=== PATIENT | female | born 1935 | race Caucasian/White ===

== ENCOUNTER 2017-07-23 20:14 | Inpatient (IN) | payer MEDICARE, BC ==
[2017-07-23] MEDS ORDERED: ASPIRIN 81 MG PO STA (20:22)
[2017-07-23] MEDS ORDERED: hydrALAZINE HCL 20 MG/ML 1 ML VIAL IVP STA ×2 (20:46→22:15)
[2017-07-23 20:57] LABS: Basophils % (A) 0 %; CH 33.3; CHCM 33.3; Eosinophils # (A) 0.1 k/uL (0-0.7); Eosinophils % (A) 1 %; HDW 2.34; Luc # (Auto) 0.08; Luc % (Auto) 1; Lymphocytes % (A) 11 %; MCH 32.1 pg (25.0-35.0); MCHC 31.9 g/dL (31.0-37.0); MCV 100.5 fL (80.0-100.0); Mean Platelet Volume 9.4; Monocytes # (A) 0.4 k/uL (0-1.0); Monocytes % (A) 5 %; Neutrophils # (A) 7.5 k/uL (1.3-7.7); Neutrophils % (A) 82 %; RBC 4.38 m/uL (3.80-5.40); WBC 9.1 k/uL (3.8-10.6)
[2017-07-23 21:07] LABS: INR 1.2 (<1.2); Partial Thromboplastin Time 27.9 sec (22.0-30.0); Prothrombin Time 11.6 sec (9.0-12.0)
--- NOTE | 2017-07-23 21:07 | ED ---
General Adult HPI - General Chief complaint: Recheck/Abnormal Lab/Rx Stated complaint: Upset stomach Time Seen by Provider: 07/23/17 20:19 Source: patient, EMS, RN notes reviewed Mode of arrival: EMS Limitations: no limitations - History of Present Illness Initial comments: 81-year-old female presents emergency Department with chief complaint of upset stomach. Patient states he states that this is living. She states that she did not feel well for slightly nauseated felt that her stomach was upset. She states she was given Pepto-Bismol which have now improved her symptoms. Patient denies any diarrhea, constipation, dysuria, hematuria, fever or chills. She states she did have slight cough and minimal shortness of breath that she denies any chest pains time. Patient was sent in here due to her abdominal complaints and hypertension. Patient states that she's not sure when she takes her blood pressure medication. Patient denies any headache or dizziness. No focal weakness. - Related Data Home Medications Medication Instructions Recorded Confirmed Acetaminophen [Tylenol] 650 mg PO Q4H PRN 03/24/16 07/23/17 Apixaban [Eliquis] 5 mg PO BID 03/24/16 07/23/17 Calcium Carbonate [Tums] 500 mg PO TID 03/24/16 07/23/17 DULoxetine HCL [Cymbalta] 20 mg PO HS 03/24/16 07/23/17 Ezetimibe [Zetia] 10 mg PO HS 03/24/16 07/23/17 Lactulose 10 gm PO DAILY PRN 03/24/16 07/23/17 Lisinopril [Zestril] 10 mg PO DAILY 03/24/16 07/23/17 Multivitamins, Thera [Multivitamin 1 tab PO DAILY 03/24/16 07/23/17 (formulary)] [place]-3 Fatty Acids/Fish Oil [Fish 1,000 mg PO DAILY 03/24/16 07/23/17 Oil 1,000 mg Softgel] Ranitidine HCl 150 mg PO DAILY 03/24/16 07/23/17 Sotalol [Betapace] 80 mg PO DAILY 03/24/16 07/23/17 buPROPion [Wellbutrin] 75 mg PO HS 03/24/16 07/23/17 Albuterol Nebulized [Ventolin 2.5 mg INHALATION RT-Q6H PRN 06/15/16 07/23/17 Nebulized] Magnesium Hydroxide [Milk of 1,600 mg PO DAILY PRN 07/23/17 07/23/17 Magnesia] Melatonin 3 mg PO HS 07/23/17 07/23/17 Ondansetron HCl [Zofran] 4 mg PO Q8H PRN 07/23/17 07/23/17 guaiFENesin [guaiFENesin Oral 200 mg PO Q4H PRN 07/23/17 07/23/17 Solution] Previous Rx's Medication Instructions Recorded HYDROcodone/APAP 10-325MG [[place] 1 tab PO Q4HR PRN #20 tab 06/19/16 10-325] clonazePAM [KlonoPIN] 1 mg PO HS PRN #10 tab 06/19/16 fentaNYL 100MCG/HR PATCH 1 patch TRANSDERM Q72H #3 patch 06/19/16 [Duragesic 100MCG/HR] Allergies Allergy/AdvReac Type Severity Reaction Status Date / Time warfarin sodium AdvReac Nausea & Verified 07/23/17 20:40 [From Coumadin] Vomiting & Diarrhea Review of Systems ROS Statement: Those systems with pertinent positive or pertinent negative responses have been documented in the HPI. ROS Other: All systems not noted in ROS Statement are negative. Past Medical History Past Medical History: Atrial Fibrillation, GERD/Reflux, Hyperlipidemia, Hypertension, Osteoarthritis (OA) Additional Past Medical History / Comment(s): Anemia, abscess on spine, abdominal hernia. History of Any Multi-Drug Resistant Organisms: None Reported Past Surgical History: Appendectomy, Cholecystectomy, Hysterectomy, Orthopedic Surgery, Tonsillectomy Additional Past Surgical History / Comment(s): right and left knee replacement, left hip replacement, kidney stone removal Past Anesthesia/Blood Transfusion Reactions: No Reported Reaction Past Psychological History: Depression Smoking Status: Former smoker Past Alcohol Use History: Occasional Past Drug Use History: None Reported - Past Family History Father History Unknown: Yes Family Medical History: COPD Additional Family Medical History / Comment(s): pt states father had heart trouble General Exam Limitations: no limitations General appearance: alert, in no apparent distress Head exam: Present: atraumatic, normocephalic, normal inspection Neck exam: Present: normal inspection. Absent: tenderness, meningismus, lymphadenopathy Respiratory exam: Present: normal lung sounds bilaterally. Absent: respiratory distress, wheezes, rales, rhonchi, stridor Cardiovascular Exam: Present: regular rate, normal rhythm, normal heart sounds. Absent: systolic murmur, diastolic murmur, rubs, gallop, clicks GI/Abdominal exam: Present: soft, normal bowel sounds, hernia (Large ventral hernia noted nontender). Absent: distended, tenderness, guarding, rebound, rigid Back exam: Absent: CVA tenderness (R), CVA tenderness (L) Skin exam: Present: warm, dry, intact, normal color. Absent: rash Course Vital Signs 07/23/17 07/23/17 07/23/17 20:17 20:48 20:57 Temperature 97.0 F L Pulse Rate 63 58 L 62 Respiratory 16 16 16 Rate Blood Pressure 201/85 199/88 188/79 O2 Sat by Pulse 98 97 97 Oximetry 07/23/17 21:29 Temperature Pulse Rate Respiratory Rate Blood Pressure 168/70 O2 Sat by Pulse Oximetry EKG Findings - EKG Comments: EKG Findings:: EKG performed 20:18 normal sinus rhythm with a rate of 65 ND interval 188 QrS duration 88 [id number] Medical Decision Making - Lab Data Result diagrams: 07/23/17 20:49 07/23/17 20:49 Lab Results 07/23/17 07/23/17 07/23/17 Range/Units 20:49 20:49 20:49 WBC 9.1 (3.8-10.6) k/uL RBC 4.38 (3.80-5.40) m/uL Hgb 14.0 (11.4-16.0) gm/dL Hct 44.0 (34.0-46.0) % MCV 100.5 H (80.0-100.0) fL MCH 32.1 (25.0-35.0) pg MCHC 31.9 (31.0-37.0) g/dL RDW 13.0 (11.5-15.5) % Plt Count 125 L (150-450) k/uL Neutrophils % 82 % Lymphocytes % 11 % Monocytes % 5 % Eosinophils % 1 % Basophils % 0 % Neutrophils # 7.5 (1.3-7.7) k/uL Lymphocytes # 1.0 (1.0-4.8) k/uL Monocytes # 0.4 (0-1.0) k/uL Eosinophils # 0.1 (0-0.7) k/uL Basophils # 0.0 (0-0.2) k/uL PT (9.0-12.0) sec INR (<1.2) APTT (22.0-30.0) sec Sodium 136 L (137-145) mmol/L Potassium 4.5 (3.5-5.1) mmol/L Chloride 102 (98-107) mmol/L Carbon Dioxide 26 (22-30) mmol/L Anion Gap 8 mmol/L BUN 18 H (7-17) mg/dL Creatinine 0.78 (0.52-1.04) mg/dL Est GFR (MDRD) Af Amer >60 (>60 ml/min/1.73 sqM) Est GFR (MDRD) Non-Af >60 (>60 ml/min/1.73 sqM) Glucose 156 H (74-99) mg/dL Calcium 8.9 (8.4-10.2) mg/dL Magnesium 1.8 (1.6-2.3) mg/dL Total Bilirubin 3.3 H (0.2-1.3) mg/dL AST 257 H (14-36) U/L ALT 152 H (9-52) U/L Alkaline Phosphatase 278 H (38-126) U/L Total Creatine Kinase 88 (30-135) U/L CK-MB (CK-2) 1.1 (0.0-2.4) ng/mL CK-MB (CK-2) Rel Index 1.3 Troponin I <0.012 (0.000-0.034) ng/mL NT-Pro-B Natriuret Pep pg/mL Total Protein 7.3 (6.3-8.2) g/dL Albumin 3.8 (3.5-5.0) g/dL Lipase 1622 H (23-300) U/L Urine Color Urine Appearance (Clear) Urine pH (5.0-8.0) Ur Specific [place] (1.001-1.035) Urine Protein (Negative) Urine Glucose (UA) (Negative) Urine Ketones (Negative) Urine Blood (Negative) Urine Nitrite (Negative) Urine Bilirubin (Negative) Urine Urobilinogen (<2.0) mg/dL Ur Leukocyte Esterase (Negative) Urine RBC (0-5) /hpf Urine WBC (0-5) /hpf Urine WBC Clumps (None) /hpf Ur Squamous Epith Cells (0-4) /hpf Urine Bacteria (None) /hpf 07/23/17 07/23/17 07/23/17 Range/Units 20:49 20:49 21:30 WBC (3.8-10.6) k/uL RBC (3.80-5.40) m/uL Hgb (11.4-16.0) gm/dL Hct (34.0-46.0) % MCV (80.0-100.0) fL MCH (25.0-35.0) pg MCHC (31.0-37.0) g/dL RDW (11.5-15.5) % Plt Count (150-450) k/uL Neutrophils % % Lymphocytes % % Monocytes % % Eosinophils % % Basophils % % Neutrophils # (1.3-7.7) k/uL Lymphocytes # (1.0-4.8) k/uL Monocytes # (0-1.0) k/uL Eosinophils # (0-0.7) k/uL Basophils # (0-0.2) k/uL PT 11.6 (9.0-12.0) sec INR 1.2 H (<1.2) APTT 27.9 (22.0-30.0) sec Sodium (137-145) mmol/L Potassium (3.5-5.1) mmol/L Chloride (98-107) mmol/L Carbon Dioxide (22-30) mmol/L Anion Gap mmol/L BUN (7-17) mg/dL Creatinine (0.52-1.04) mg/dL Est GFR (MDRD) Af Amer (>60 ml/min/1.73 sqM) Est GFR (MDRD) Non-Af (>60 ml/min/1.73 sqM) Glucose (74-99) mg/dL Calcium (8.4-10.2) mg/dL Magnesium (1.6-2.3) mg/dL Total Bilirubin (0.2-1.3) mg/dL AST (14-36) U/L ALT (9-52) U/L Alkaline Phosphatase (38-126) U/L Total Creatine Kinase (30-135) U/L CK-MB (CK-2) (0.0-2.4) ng/mL CK-MB (CK-2) Rel Index Troponin I (0.000-0.034) ng/mL NT-Pro-B Natriuret Pep 452 pg/mL Total Protein (6.3-8.2) g/dL Albumin (3.5-5.0) g/dL Lipase (23-300) U/L Urine Color Yellow Urine Appearance Cloudy H (Clear) Urine pH 7.5 (5.0-8.0) Ur Specific [place] 1.011 (1.001-1.035) Urine Protein Trace H (Negative) Urine Glucose (UA) Negative (Negative) Urine Ketones Negative (Negative) Urine Blood Negative (Negative) Urine Nitrite Positive H (Negative) Urine Bilirubin Negative (Negative) Urine Urobilinogen 6.0 (<2.0) mg/dL Ur Leukocyte Esterase Large H (Negative) Urine RBC 3 (0-5) /hpf Urine WBC 52 H (0-5) /hpf Urine WBC Clumps Rare H (None) /hpf Ur Squamous Epith Cells <1 (0-4) /hpf Urine Bacteria Many H (None) /hpf Disposition Clinical Impression: Transaminitis, Acute pancreatitis, UTI (urinary tract infection), Hypertension Disposition: ADMITTED IP TO THIS HOSP Condition: Fair Referrals: Alirio Ellington MD [Primary Care Provider] - 1-2 days
[2017-07-23 21:21] LABS: ALT 152 U/L (9-52); AST 257 U/L (14-36); Alkaline Phosphatase 278 U/L (38-126); Anion Gap 8 mmol/L; Blood Urea Nitrogen 18 mg/dL (7-17); Calcium 8.9 mg/dL (8.4-10.2); Carbon Dioxide 26 mmol/L (22-30); Chloride 102 mmol/L (98-107); Creatine Kinase 88 U/L (30-135); Glucose 156 mg/dL (74-99); Magnesium 1.8 mg/dL (1.6-2.3); Non-African American GFR(MDRD) >60 (>60 ml/min/1.73 sqM); Potassium 4.5 mmol/L (3.5-5.1); Sodium 136 mmol/L (137-145); Total Bilirubin 3.3 mg/dL (0.2-1.3); Total Protein 7.3 g/dL (6.3-8.2)
[2017-07-23 21:33] LABS: Creatine Kinase MB 1.1 ng/mL (0.0-2.4); Troponin I <0.012 ng/mL (0.000-0.034)
[2017-07-23 21:53] LABS: Appearance,Urine Cloudy (Clear); Bacteria,Urine Many /hpf; Bilirubin,Urine Negative (Negative); Glucose,Urine (UA) Negative (Negative); Ketones,Urine Negative (Negative); Leukocyte Esterase,Urine Large (Negative); Nitrite,Urine Positive (Negative); PH, Urine 7.5 (5.0-8.0); Particle Count 43045; Protein,Urine Trace (Negative); RBC,Urine 3 /hpf (0-5); Specific Gravity,Urine 1.011 (1.001-1.035); Squamous Epithelial Cell,Urine <1 /hpf (0-4); UA Billing (MACRO vs. MICRO) MICRO; WBC,Urine 52 /hpf (0-5)
--- NOTE | 2017-07-23 21:59 | XR ---
EXAMINATION TYPE: XR chest 2V DATE OF EXAM: 07/23/2017 COMPARISON: 12/06/2013 HISTORY: Hypertension chest pain TECHNIQUE: Frontal and lateral views of the chest are obtained. FINDINGS: There is slight coarsening of interstitial markings. There is no heart failure. Thoracic a saman is atheromatous. Costophrenic angles are clear. Bony thorax is intact. IMPRESSION: Mild pulmonary fibrosis. No active cardiopulmonary disease. No change.
--- NOTE | 2017-07-23 22:04 | XR ---
EXAMINATION TYPE: XR KUB DATE OF EXAM: 07/23/2017 COMPARISON: 06/15/2016 HISTORY: Pain TECHNIQUE: 3 views FINDINGS: There is no sign of intestinal obstruction or pneumoperitoneum. Fecal pattern is normal. Th ere is no sign of a mass. There is bowel in the left mid abdomen consistent with a large hernia. Ther e is a left hip prosthesis. There are surgical clips in the mid abdomen. IMPRESSION: Nonacute abdomen. Large left-sided abdominal wall hernia. No evidence of obstruction. The re is probably no change compared to old exam.
[2017-07-23] MEDS ORDERED: MORPHINE SULFATE 4 MG/ML SYRINGE IV PRN (22:17)
[2017-07-23] MEDS ORDERED: ONDANSETRON 4 MG/2 ML VIAL IVP PRN (22:17)
[2017-07-23] MEDS ORDERED: NALOXONE 0.4 MG/ML 1 ML VIAL IV PRN (22:17)
[2017-07-23] MEDS ORDERED: hydrALAZINE HCL 20 MG/ML 1 ML VIAL IVP PRN (22:18)
[2017-07-23] MEDS ORDERED: ONDANSETRON 4 MG TAB PO PRN (22:19)
[2017-07-23] MEDS: SODIUM CHLORIDE 0.9% 1,000 ML IV SCH (23:09)
[2017-07-23] MEDS: clonazePAM 1 MG TAB PO PRN (23:48)
[2017-07-24] MEDS: ALBUTEROL NEBULIZED 2.5 MG/3 ML INHALATION PRN ×3 (07:41→20:40)
[2017-07-24] MEDS: APIXABAN 5 MG TAB PO SCH ×2 (08:30→20:20)
[2017-07-24] MEDS: MULTIVITAMINS, THERA 1 EACH TAB PO SCH (08:31)
[2017-07-24] MEDS: LISINOPRIL 10 MG TAB PO SCH (08:31)
[2017-07-24] MEDS: FAMOTIDINE 20 MG TAB PO SCH (08:31)
[2017-07-24] MEDS: CALCIUM CARBONATE 500 MG CHEWABLE PO SCH ×3 (08:31→22:13)
[2017-07-24] MEDS: SOTALOL 80 MG TAB PO SCH (08:31)
[2017-07-24] MEDS: HYDROcodone/APAP 10-325MG 1 EACH TAB PO PRN ×3 (08:44→20:39)
[2017-07-24 09:21] LABS: ALT 153 U/L (9-52); AST 202 U/L (14-36); Alkaline Phosphatase 249 U/L (38-126); Anion Gap 8 mmol/L; Blood Urea Nitrogen 15 mg/dL (7-17); Calcium 8.6 mg/dL (8.4-10.2); Carbon Dioxide 26 mmol/L (22-30); Chloride 104 mmol/L (98-107); Glucose 94 mg/dL (74-99); Non-African American GFR(MDRD) >60 (>60 ml/min/1.73 sqM); Potassium 4.6 mmol/L (3.5-5.1); Sodium 138 mmol/L (137-145); Total Bilirubin 4.8 mg/dL (0.2-1.3); Total Protein 6.5 g/dL (6.3-8.2)
--- NOTE | 2017-07-24 12:02 | P.HPIM ---
History of Present Illness H&P Date: 07/24/17 Chief Complaint: Abdominal pain History of presenting complaint: This is a very pleasant [address] Ellington resident of [facility]. Chronic stable medical conditions include mental hernia, history of atrial fibrillation , GERD, hyperlipidemia, hypertension, osteoarthritis, medical debility. Depression. Patient doesn't really walk very weak in the lower extremity. Patient presents with one day of increasing upper abdominal pain and nausea no fever did have a bowel movement yesterday got some pain medicine the pain is better right now laying in bed rather tired appetite is gone down. GEN.: Tired EYES: None HEENT: None NECK: None RESPIRATORY: None CARDIOVASCULAR: None GASTROINTESTINAL: As above GENITOURINARY: None MUSCULOSKELETAL: Pain in many joints] LYMPHATICS: None HEMATOLOGICAL: None PSYCHIATRY: None NEUROLOGICAL: Weakness of lower extremities Past medical history: Mental hernia, atrial fibrillation, GERD, hyperlipidemia, hypertension, osteoporosis arthritis, obesity, medical debility, depression Past surgical history: Appendectomy, cholecystectomy, gastrectomy, tonsillectomy, right knee left knee replacement, left hip replacement, kidney stone removal Home medications reviewed in the computer ALLERGIES: Warfarin nausea causing nausea and vomiting Social history: This smoke in the past. Alcohol occasionally. Lives at [facility] Family history: COPD, father had heart trouble VITAL SIGNS: 97, 63, 16, 201/85, 98% on 2 L GENERAL: Well-built, BMI 38.2 laying in bed, tired appearing. EYES: Pupils equal. Conjunctiva normal. HEENT: External appearance of nose and ears normal, oral cavity grossly normal. NECK: JVD not raised; masses not palpable. HEART: First and second heart sounds are normal; no edema. LUNGS: Respiratory rate normal; decreased breath sounds. ABDOMEN: Soft, upper abdomen tenderness, no guarding or rigidity, liver spleen not palpable, no masses palpable, reducible large ventral hernia. LYMPHATICS: No lymph nodes palpable in the axilla and neck. PSYCH: Alert and oriented x3; mood and affect normal. NEUROLOGICAL: [Cranial nerves grossly intact; no facial asymmetry, power in the lower extremity 4/5. -Musculoskeletal: Evidence of osteoarthritis in multiple joints Investigations: White count 9.1, hemoglobin 14, potassium 4.5 to be an 18, creatinine 0.78 AST 257, ALT 152, lipase 1622 Assessment: -Possible acute gallstone pancreatitis and element of obstructive hepatitis with elevated alk phos -Abdominal ventral hernia, reducible -Paroxysmal atrial fibrillation currently in sinus rhythm -Chronic GERD -Essential hypertension uncontrolled -Primary osteoarthritis multiple joints -Obesity BMI 38.2 -Chronic medical debility -Depression not otherwise specified Plan: Patient be put on ice chips. Do a liver ultrasound. We will do amylase lipase and LFTs in the morning. Home medications resumed. Care was discussed with the patient. Consultation to GI and surgery being made. Past Medical History Past Medical History: Atrial Fibrillation, GERD/Reflux, Hyperlipidemia, Hypertension, Osteoarthritis (OA) Additional Past Medical History / Comment(s): Anemia, abscess on spine, abdominal hernia. History of Any Multi-Drug Resistant Organisms: None Reported Past Surgical History: Appendectomy, Cholecystectomy, Hysterectomy, Orthopedic Surgery, Tonsillectomy Additional Past Surgical History / Comment(s): right and left knee replacement, left hip replacement, kidney stone removal Past Anesthesia/Blood Transfusion Reactions: No Reported Reaction Past Psychological History: Depression Smoking Status: Former smoker Past Alcohol Use History: Occasional Past Drug Use History: None Reported - Past Family History Father History Unknown: Yes Family Medical History: COPD Additional Family Medical History / Comment(s): pt states father had heart trouble Medications and Allergies Home Medications Medication Instructions Recorded Confirmed Type Acetaminophen [Tylenol] 650 mg PO Q4H PRN 03/24/16 07/23/17 History Apixaban [Eliquis] 5 mg PO BID 03/24/16 07/23/17 History Calcium Carbonate [Tums] 500 mg PO TID 03/24/16 07/23/17 History DULoxetine HCL [Cymbalta] 20 mg PO HS 03/24/16 07/23/17 History Ezetimibe [Zetia] 10 mg PO HS 03/24/16 07/23/17 History Lactulose 10 gm PO DAILY PRN 03/24/16 07/23/17 History Lisinopril [Zestril] 10 mg PO DAILY 03/24/16 07/23/17 History Multivitamins, Thera [Multivitamin 1 tab PO DAILY 03/24/16 07/23/17 History (formulary)] [place]-3 Fatty Acids/Fish Oil [Fish 1,000 mg PO DAILY 03/24/16 07/23/17 History Oil 1,000 mg Softgel] Ranitidine HCl 150 mg PO DAILY 03/24/16 07/23/17 History Sotalol [Betapace] 80 mg PO DAILY 03/24/16 07/23/17 History buPROPion [Wellbutrin] 75 mg PO HS 03/24/16 07/23/17 History Albuterol Nebulized [Ventolin 2.5 mg INHALATION RT-Q6H PRN 06/15/16 07/23/17 History Nebulized] Magnesium Hydroxide [Milk of 1,600 mg PO DAILY PRN 07/23/17 07/23/17 History Magnesia] Melatonin 3 mg PO HS 07/23/17 07/23/17 History Ondansetron HCl [Zofran] 4 mg PO Q8H PRN 07/23/17 07/23/17 History guaiFENesin [guaiFENesin Oral 200 mg PO Q4H PRN 07/23/17 07/23/17 History Solution] Allergies Allergy/AdvReac Type Severity Reaction Status Date / Time warfarin sodium AdvReac Nausea & Verified 07/23/17 20:40 [From Coumadin] Vomiting & Diarrhea Results CBC & Chem 7: 07/23/17 20:49 07/24/17 08:21
--- NOTE | 2017-07-24 12:54 | US ---
EXAMINATION TYPE: US abdomen limited DATE OF EXAM: 07/24/2017 COMPARISON: CT CLINICAL HISTORY: poss gallstones. Pt states ABD pain EXAM MEASUREMENTS: Liver Length: 18.4 cm CBD: 1.0 cm Right Kidney: 11.4 x 3.4 x 4.1 cm Difficult exam due to large body habitus Pancreas: Body wnl, head and tail obscured by overlying bowel gas Liver: Enlarged, heterogeneous with possible intraductal dilatation Gallbladder: Surgically absent Evidence for sonographic Bernabe's sign: No CBD: wnl, for post wendie Right Kidney: wnl IMPRESSION: 1. Postcholecystectomy. 2. Liver appears enlarged and heterogeneous with possible intraductal dilation. Correlate for hepatit is, fatty infiltration or diffuse hepatocellular disease. Ductal dilation likely secondary to postcho lecystectomy changes.
[2017-07-24] MEDS: SODIUM CHLORIDE 0.9% 1,000 ML IV SCH ×2 (13:00→21:05)
--- NOTE | 2017-07-24 13:20 | P.GSCN ---
History of Present Illness Consult date: 07/24/17 Reason for Consult: Abdominal pain History of present illness: 81-year-old female being seen at the request of the attending for surgical eval for a chief complaint of abdominal pain present on admission. Patient reports that the pain started last Sunday over the weekend she felt nauseated like her stomach was upset she did take [id number] Pepto-Bismol offered some relief. Patient stated she was not bothered with loose stools constipation. Denied any burning on urination or frequency urgency. Patient is a poor historian. Has limited activities of daily living limited mobility with chronic debility. States she has chronic pain has a fentanyl patch. Patient is a poor historian stated that she had her gallbladder out many years ago but cannot recall where it was done. Patient has a large ventral hernia on the left side which the patient states is chronic. with no evidence of obstruction or gangrene patient was seen in May [address] Beckham for the large ventral hernia. At that time the surgeon referred the patient to a specialist at [facility] due to the complexity of the hernia uncertain whether the patient followed up Review of Systems Difficult to adequately obtain patient has poor recall Past Medical History Past Medical History: Atrial Fibrillation, GERD/Reflux, Hyperlipidemia, Hypertension, Osteoarthritis (OA) Additional Past Medical History / Comment(s): Anemia, abscess on spine, abdominal hernia. History of Any Multi-Drug Resistant Organisms: None Reported Past Surgical History: Appendectomy, Cholecystectomy, Hysterectomy, Orthopedic Surgery, Tonsillectomy Additional Past Surgical History / Comment(s): right and left knee replacement, left hip replacement, kidney stone removal Past Anesthesia/Blood Transfusion Reactions: No Reported Reaction Past Psychological History: Depression Smoking Status: Former smoker Past Alcohol Use History: Occasional Past Drug Use History: None Reported - Past Family History Father History Unknown: Yes Family Medical History: COPD Additional Family Medical History / Comment(s): pt states father had heart trouble Medications and Allergies Home Medications Medication Instructions Recorded Confirmed Type Acetaminophen [Tylenol] 650 mg PO Q4H PRN 03/24/16 07/23/17 History Apixaban [Eliquis] 5 mg PO BID 03/24/16 07/23/17 History Calcium Carbonate [Tums] 500 mg PO TID 03/24/16 07/23/17 History DULoxetine HCL [Cymbalta] 20 mg PO HS 03/24/16 07/23/17 History Ezetimibe [Zetia] 10 mg PO HS 03/24/16 07/23/17 History Lactulose 10 gm PO DAILY PRN 03/24/16 07/23/17 History Lisinopril [Zestril] 10 mg PO DAILY 03/24/16 07/23/17 History Multivitamins, Thera [Multivitamin 1 tab PO DAILY 03/24/16 07/23/17 History (formulary)] [place]-3 Fatty Acids/Fish Oil [Fish 1,000 mg PO DAILY 03/24/16 07/23/17 History Oil 1,000 mg Softgel] Ranitidine HCl 150 mg PO DAILY 03/24/16 07/23/17 History Sotalol [Betapace] 80 mg PO DAILY 03/24/16 07/23/17 History buPROPion [Wellbutrin] 75 mg PO HS 03/24/16 07/23/17 History Albuterol Nebulized [Ventolin 2.5 mg INHALATION RT-Q6H PRN 06/15/16 07/23/17 History Nebulized] Magnesium Hydroxide [Milk of 1,600 mg PO DAILY PRN 07/23/17 07/23/17 History Magnesia] Melatonin 3 mg PO HS 07/23/17 07/23/17 History Ondansetron HCl [Zofran] 4 mg PO Q8H PRN 07/23/17 07/23/17 History guaiFENesin [guaiFENesin Oral 200 mg PO Q4H PRN 07/23/17 07/23/17 History Solution] Allergies Allergy/AdvReac Type Severity Reaction Status Date / Time warfarin sodium AdvReac Nausea & Verified 07/23/17 20:40 [From Coumadin] Vomiting & Diarrhea Surgical - Exam Vital Signs Temp Pulse Resp BP Pulse Ox 97.0 F L 63 16 201/85 98 07/23/17 20:17 07/23/17 20:17 07/23/17 20:17 07/23/17 20:17 07/23/17 20:17 GENERAL APPEARANCE: 81-year-old female patient is alert, oriented, in no acute distress. VITAL SIGNS: Reviewed HEENT: Head is normocephalic and atraumatic. Pupils are equal and reactive. The nares are patent. Oropharynx is clear without lesions. NECK: Supple without lymphadenopathy. Traches midline. HEART: S1, S2. Irregular denying chest pain when questioning LUNGS: No crackles or wheezes are heard. Diminished at the bases otherwise adequate air movement ABDOMEN: Soft,obese slight tenderness to the left large ventral hernia, nondistended with hypoactive bowel tones. No peritoneal signs. No palpable organomegaly or masses. Patient states had a bowel movement twice yesterday incontinently urine patient reports a nausea sensation resolving no emesis EXTREMITIES: Normal skin color and turgor. No cyanosis, rash, ulceration, clubbing or edema. Radial pedal pulses are 2/4 bilaterally. Tremors noted to the right hand NEUROLOGICAL: No focal deficits. Strength and sensation are grossly intact. Results - Labs 07/23/17 20:49 07/24/17 08:21 Abnormal Lab Results - Last 24 Hours (Table) 07/23/17 07/23/17 07/23/17 Range/Units 20:49 20:49 20:49 MCV 100.5 H (80.0-100.0) fL Plt Count 125 L (150-450) k/uL INR 1.2 H (<1.2) Sodium 136 L (137-145) mmol/L BUN 18 H (7-17) mg/dL Glucose 156 H (74-99) mg/dL Total Bilirubin 3.3 H (0.2-1.3) mg/dL AST 257 H (14-36) U/L ALT 152 H (9-52) U/L Alkaline Phosphatase 278 H (38-126) U/L Albumin (3.5-5.0) g/dL Lipase 1622 H (23-300) U/L Urine Appearance (Clear) Urine Protein (Negative) Urine Nitrite (Negative) Ur Leukocyte Esterase (Negative) Urine WBC (0-5) /hpf Urine WBC Clumps (None) /hpf Urine Bacteria (None) /hpf 07/23/17 07/24/17 07/24/17 Range/Units 21:30 08:21 08:21 MCV (80.0-100.0) fL Plt Count (150-450) k/uL INR (<1.2) Sodium (137-145) mmol/L BUN (7-17) mg/dL Glucose (74-99) mg/dL Total Bilirubin 4.8 H (0.2-1.3) mg/dL AST 202 H (14-36) U/L ALT 153 H (9-52) U/L Alkaline Phosphatase 249 H (38-126) U/L Albumin 3.3 L (3.5-5.0) g/dL Lipase 734 H (23-300) U/L Urine Appearance Cloudy H (Clear) Urine Protein Trace H (Negative) Urine Nitrite Positive H (Negative) Ur Leukocyte Esterase Large H (Negative) Urine WBC 52 H (0-5) /hpf Urine WBC Clumps Rare H (None) /hpf Urine Bacteria Many H (None) /hpf Microbiology - Last 24 Hours (Table) 07/23/17 21:30 Urine Culture - Preliminary Urine,Catheterized Diabetes panel 07/23/17 07/24/17 Range/Units 20:49 08:21 Sodium 136 L 138 (137-145) mmol/L Potassium 4.5 4.6 (3.5-5.1) mmol/L Chloride 102 104 (98-107) mmol/L Carbon Dioxide 26 26 (22-30) mmol/L BUN 18 H 15 (7-17) mg/dL Creatinine 0.78 0.70 (0.52-1.04) mg/dL Glucose 156 H 94 (74-99) mg/dL Calcium 8.9 8.6 (8.4-10.2) mg/dL AST 257 H 202 H (14-36) U/L ALT 152 H 153 H (9-52) U/L Alkaline Phosphatase 278 H 249 H (38-126) U/L Total Protein 7.3 6.5 (6.3-8.2) g/dL Albumin 3.8 3.3 L (3.5-5.0) g/dL Calcium panel 07/23/17 07/24/17 Range/Units 20:49 08:21 Calcium 8.9 8.6 (8.4-10.2) mg/dL Albumin 3.8 3.3 L (3.5-5.0) g/dL Pituitary panel 07/23/17 07/24/17 Range/Units 20:49 08:21 Sodium 136 L 138 (137-145) mmol/L Potassium 4.5 4.6 (3.5-5.1) mmol/L Chloride 102 104 (98-107) mmol/L Carbon Dioxide 26 26 (22-30) mmol/L BUN 18 H 15 (7-17) mg/dL Creatinine 0.78 0.70 (0.52-1.04) mg/dL Glucose 156 H 94 (74-99) mg/dL Calcium 8.9 8.6 (8.4-10.2) mg/dL Adrenal panel 07/23/17 07/24/17 Range/Units 20:49 08:21 Sodium 136 L 138 (137-145) mmol/L Potassium 4.5 4.6 (3.5-5.1) mmol/L Chloride 102 104 (98-107) mmol/L Carbon Dioxide 26 26 (22-30) mmol/L BUN 18 H 15 (7-17) mg/dL Creatinine 0.78 0.70 (0.52-1.04) mg/dL Glucose 156 H 94 (74-99) mg/dL Calcium 8.9 8.6 (8.4-10.2) mg/dL Total Bilirubin 3.3 H 4.8 H (0.2-1.3) mg/dL AST 257 H 202 H (14-36) U/L ALT 152 H 153 H (9-52) U/L Alkaline Phosphatase 278 H 249 H (38-126) U/L Total Protein 7.3 6.5 (6.3-8.2) g/dL Albumin 3.8 3.3 L (3.5-5.0) g/dL Assessment and Plan Plan: Impression Present on admission abdominal pain with nausea vomiting unclear etiology chronic left ventral hernia without obstruction or gangrene present on admission Chronic persistent atrial fibrillation on eliquist Morbid obesity BMI 38 due to excessive calories Chronic debility limited mobility Chronic pain opiate dependency History of open cholecystectomy History of incarcerated incisional hernia secondary to multiple laparotomies for duodenal perforation from an open cholecystectomy Ultrasound of the abdomen done on July 24 show evidence of post cholecystectomy liver appears enlarged ductal dilatation likely secondary to post Present on admission hypertension urgency History of chronic constipation suspect due to opiate use Elevated AST and ALT with elevated total bilirubin Plan Pain control We'll continue to monitor surgical clinical issues as they arise No evidence of an acute surgical abdomen at this time Resume home meds as appropriate IV fluid at 100 and hour for rehydration Bowel stimulant program DVT and GI prophylaxis Resume home meds as appropriate Consult GI service possible gallstones Repeat labs in the morning Thank you for allowing us to participate in the surgical management of your patient further surgical recommendations pending clinical course
[2017-07-24] MEDS ORDERED: MORPHINE SULFATE 2 MG/ML SYRINGE IV PRN (13:21)
[2017-07-24] MEDS: LACTULOSE 20 GM/30 ML CUP PO SCH (16:50)
[2017-07-24] MEDS: buPROPion 75 MG TAB PO SCH (20:21)
[2017-07-24] MEDS: MELATONIN 3 MG TABLET PO SCH (20:21)
[2017-07-24] MEDS: DULoxetine HCL 20 MG CAPSULE.DR PO SCH (20:21)
[2017-07-24] MEDS: POLYETHYLENE GLYCOL 3350 17 GM POWD.PACK PO SCH (20:21)
[2017-07-24] MEDS: DOCUSATE 100 MG CAP PO SCH (20:21)
[2017-07-24] MEDS: EZETIMIBE 10 MG TAB PO SCH (20:21)
[2017-07-24] MEDS: clonazePAM 1 MG TAB PO PRN (22:13)
[2017-07-25] MEDS: SODIUM CHLORIDE 0.9% 1,000 ML IV SCH ×3 (05:39→23:26)
[2017-07-25] MEDS: ALBUTEROL NEBULIZED 2.5 MG/3 ML INHALATION PRN ×2 (07:22→15:26)
[2017-07-25] MEDS: DOCUSATE 100 MG CAP PO SCH ×2 (07:57→20:43)
[2017-07-25] MEDS: MULTIVITAMINS, THERA 1 EACH TAB PO SCH (07:57)
[2017-07-25] MEDS: LACTULOSE 20 GM/30 ML CUP PO SCH (07:57)
[2017-07-25] MEDS: SOTALOL 80 MG TAB PO SCH (07:57)
[2017-07-25] MEDS: LISINOPRIL 10 MG TAB PO SCH (07:57)
[2017-07-25] MEDS: FAMOTIDINE 20 MG TAB PO SCH (07:57)
[2017-07-25] MEDS: CALCIUM CARBONATE 500 MG CHEWABLE PO SCH ×3 (07:57→21:09)
[2017-07-25] MEDS: APIXABAN 5 MG TAB PO SCH (07:57)
[2017-07-25 08:39] LABS: ALT 115 U/L (9-52); AST 108 U/L (14-36); Alkaline Phosphatase 204 U/L (38-126); Amylase 60 U/L (30-110); Anion Gap 7 mmol/L; Blood Urea Nitrogen 22 mg/dL (7-17); Calcium 8.1 mg/dL (8.4-10.2); Carbon Dioxide 23 mmol/L (22-30); Chloride 109 mmol/L (98-107); Glucose 65 mg/dL (74-99); Non-African American GFR(MDRD) 58 (>60 ml/min/1.73 sqM); Potassium 4.3 mmol/L (3.5-5.1); Sodium 139 mmol/L (137-145); Total Bilirubin 5.2 mg/dL (0.2-1.3); Total Protein 5.8 g/dL (6.3-8.2)
--- NOTE | 2017-07-25 12:13 | P.CONS ---
History of Present Illness - Reason for Consult Consult date: 07/25/17 elevated liver enzymes Requesting physician: Gaetano Bellamy - History of Present Illness 81-year-old female with a history of open calculus cholecystectomy complicated by duodenal perforation presents with abdominal pain and elevated liver pancreatic enzymes. Possible UTI. Pain has been present for the last few weeks. Total bilirubin 3.3-5.2. AST 257 presently 108. ALT 152 presently 115. Alkaline phosphatase 278 presently 204. Lipase 1622 presently 472. Amylase 60. INR 1.2. White count 9.1. Hemoglobin 14. Platelet 125. No history of known liver disorders. No history of hepatitis. No changes in medications. Afebrile. History of atrial fibrillation maintained on Eliquis BID. Last dose this morning. Ultrasound abdomen postcholecystectomy. CBD 1 cm. Liver appeared enlarged heterogeneous possible intraductal dilation. Review of Systems Constitutional: Denies fever, chills, sweats, weight gain, or loss. HEENT: Negative for migraines, blurred vision or loss, earaches, drainage, tinnitus, oral mucosal lesions, dysphagia, or odynophagia. CARDIAC: Atrial fibrillation hyperlipidemia hypertension Negative for chest pain , arrhythmias, or palpitation. RESPIRATORY: Negative for shortness of breath, hemoptysis, cough, or sputum production. GI: See HPI for pertinent findings. : Negative for hematuria, urgency, frequency, polyuria, or dysuria. GYNc: Denies possibility of . Negative vaginal discharge. MUSCULOSKELETAL: Negative for muscle aches, swelling, arthritis, and arthralgias. NEUROLOGIC: Negative for stroke or TIA. ENDOCRINE: Negative for thyroid problems. SKIN: Negative for rash or itching. PSYCHIATRIC: Negative history for depression and anxiety All systems: negative (See HPI) Past Medical History Past Medical History: Atrial Fibrillation, GERD/Reflux, Hyperlipidemia, Hypertension, Osteoarthritis (OA) Additional Past Medical History / Comment(s): Anemia, abscess on spine, abdominal hernia. History of Any Multi-Drug Resistant Organisms: None Reported Past Surgical History: Appendectomy, Cholecystectomy, Hysterectomy, Orthopedic Surgery, Tonsillectomy Additional Past Surgical History / Comment(s): right and left knee replacement, left hip replacement, kidney stone removal Past Anesthesia/Blood Transfusion Reactions: No Reported Reaction Past Psychological History: Depression Smoking Status: Former smoker Past Alcohol Use History: Occasional Past Drug Use History: None Reported - Past Family History Father History Unknown: Yes Family Medical History: COPD Additional Family Medical History / Comment(s): pt states father had heart trouble Medications and Allergies Home Medications Medication Instructions Recorded Confirmed Type Acetaminophen [Tylenol] 650 mg PO Q4H PRN 03/24/16 07/23/17 History Apixaban [Eliquis] 5 mg PO BID 03/24/16 07/23/17 History Calcium Carbonate [Tums] 500 mg PO TID 03/24/16 07/23/17 History DULoxetine HCL [Cymbalta] 20 mg PO HS 03/24/16 07/23/17 History Ezetimibe [Zetia] 10 mg PO HS 03/24/16 07/23/17 History Lactulose 10 gm PO DAILY PRN 03/24/16 07/23/17 History Lisinopril [Zestril] 10 mg PO DAILY 03/24/16 07/23/17 History Multivitamins, Thera [Multivitamin 1 tab PO DAILY 03/24/16 07/23/17 History (formulary)] [place]-3 Fatty Acids/Fish Oil [Fish 1,000 mg PO DAILY 03/24/16 07/23/17 History Oil 1,000 mg Softgel] Ranitidine HCl 150 mg PO DAILY 03/24/16 07/23/17 History Sotalol [Betapace] 80 mg PO DAILY 03/24/16 07/23/17 History buPROPion [Wellbutrin] 75 mg PO HS 03/24/16 07/23/17 History Albuterol Nebulized [Ventolin 2.5 mg INHALATION RT-Q6H PRN 06/15/16 07/23/17 History Nebulized] Magnesium Hydroxide [Milk of 1,600 mg PO DAILY PRN 07/23/17 07/23/17 History Magnesia] Melatonin 3 mg PO HS 07/23/17 07/23/17 History Ondansetron HCl [Zofran] 4 mg PO Q8H PRN 07/23/17 07/23/17 History guaiFENesin [guaiFENesin Oral 200 mg PO Q4H PRN 07/23/17 07/23/17 History Solution] Allergies Allergy/AdvReac Type Severity Reaction Status Date / Time warfarin sodium AdvReac Nausea & Verified 07/23/17 20:40 [From Coumadin] Vomiting & Diarrhea Physical Exam Vitals: Vital Signs Temp Pulse Pulse Resp BP Pulse Ox 07/25/17 07:40 68 07/25/17 07:24 70 16 07/25/17 07:00 97.6 F 70 16 105/46 96 07/24/17 23:00 97.8 F 54 L 16 107/55 95 07/24/17 20:54 64 07/24/17 20:40 60 07/24/17 16:21 52 L 16 82/54 96 07/24/17 16:00 16 07/24/17 15:00 97.9 F 52 L 16 94/45 96 07/24/17 13:56 88 07/24/17 13:46 84 Intake and Output 07/24/17 07/25/17 07/25/17 22:59 06:59 14:59 Intake Total 100 Balance 100 Intake: IV 100 Sodium Chloride 0.9% 1, 100 000 ml @ 100 mls/hr IV . Q10H ALEKSANDRA Rx#:[id number] Other: Voiding Method Diaper Diaper Incontinent Incontinent # Voids 1 2 1 General appearance: The patient is alert, oriented, in no acute distress. Jaundice. HET: Head is normocephalic and atraumatic. Pupils are equal and reactive. Sclera icterus. Oropharynx is clear without lesions. Neck: Supple without lymphadenopathy. Trachea midline. Heart: S1 S2. Regular rate and rhythm. Lungs: No crackles or wheezes are heard. Abdomen: Soft, midline reducible incisional hernia, mild tenderness to the mid abdomen, nondistended with bowel sounds. No peritoneal signs. No palpable organomegaly or masses. Extremities: Normal skin color and turgor. No cyanosis, rash, ulceration, clubbing, or edema. Radial and pedal pulses are 2/4 bilaterally. Neurological: No focal deficits. Strength and sensation are grossly intact. Results CBC & Chem 7: 07/23/17 20:49 07/26/17 07:21 Labs: Abnormal Lab Results - Last 24 Hours (Table) 07/25/17 Range/Units 07:34 Chloride 109 H (98-107) mmol/L BUN 22 H (7-17) mg/dL Glucose 65 L (74-99) mg/dL Calcium 8.1 L (8.4-10.2) mg/dL Total Bilirubin 5.2 H (0.2-1.3) mg/dL AST 108 H (14-36) U/L ALT 115 H (9-52) U/L Alkaline Phosphatase 204 H (38-126) U/L Total Protein 5.8 L (6.3-8.2) g/dL Albumin 2.8 L (3.5-5.0) g/dL Lipase 472 H (23-300) U/L Microbiology - Last 24 Hours (Table) 07/23/17 21:30 Urine Culture - Preliminary Urine,Catheterized US - abdomen: report reviewed (Dr. Hilliard) Assessment and Plan (1) Acute pancreatitis Narrative/Plan: 81-year-old female with a history of calculus open cholecystectomy with postoperative complications including duodenal perforation presents with abdominal pain jaundice elevated liver and pancreatic enzymes consistent with acute pancreatitis suspect biliary in origin possible choledocholithiasis. Status: Acute (2) Elevated liver enzymes Status: Acute (3) Atrial fibrillation Status: Chronic Plan: 1. Hold Eliquis preferably 48 hours. 2. ERCP tentaively planned in the next 48 hours if LFTs do not improve and or MRI warrants further investigation. 3. MRCP today. 4. Repeat CMP lipase in am. 5. Hepatitis screen. 6. Clear liquids. Thank you for this kind referral and the opportunity to participate in the care of your patient. This consultation was discussed with Dr. Hilliard. The impression and plan of care have been directed as dictated.
[2017-07-25] MEDS: HYDROcodone/APAP 10-325MG 1 EACH TAB PO PRN ×2 (15:40→21:06)
--- NOTE | 2017-07-25 16:05 | P.PN ---
Subjective 81-year-old female being seen. There's been no new events. Patient currently is resting in bed. Patient has been seen by GI service recommendations reviewed noted and appreciated. Did note the patient's bilirubin is 3.5 up to 5.2 did note that the GI services indicating hold all aqueous ERCP tentatively plan for the next 48 hours if the liver function testing do not improve. Objective - Vital Signs Vital signs: Vital Signs Temp 97.0 F L 07/25/17 15:00 Pulse 64 07/25/17 15:37 Resp 16 07/25/17 15:00 BP 130/71 07/25/17 15:00 Pulse Ox 98 07/25/17 15:37 Intake & Output 07/24/17 07/25/17 07/25/17 18:59 06:59 18:59 Intake Total 100 Balance 100 Intake: IV 100 Sodium Chloride 0.9% 1, 100 000 ml @ 100 mls/hr IV . Q10H ALEKSANDRA Rx#:[id number] Other: Voiding Method Diaper Diaper Diaper Incontinent Incontinent Incontinent # Voids 1 2 1 - Exam Physical exam History 81-year-old female resting in bed does not appear in acute distress awake oriented to person and place Lungs anterior diminished at the bases otherwise adequate air movement Heart S1-S2 audible regular Abdomen obese to large ventral hernia noted nontender bowel tones present extremities no pedal edema noted - Labs CBC & Chem 7: 07/23/17 20:49 07/25/17 07:34 Labs: Abnormal Lab Results - Last 24 Hours (Table) 07/25/17 Range/Units 07:34 Chloride 109 H (98-107) mmol/L BUN 22 H (7-17) mg/dL Glucose 65 L (74-99) mg/dL Calcium 8.1 L (8.4-10.2) mg/dL Total Bilirubin 5.2 H (0.2-1.3) mg/dL AST 108 H (14-36) U/L ALT 115 H (9-52) U/L Alkaline Phosphatase 204 H (38-126) U/L Total Protein 5.8 L (6.3-8.2) g/dL Albumin 2.8 L (3.5-5.0) g/dL Lipase 472 H (23-300) U/L Microbiology - Last 24 Hours (Table) 07/23/17 21:30 Urine Culture - Preliminary Urine,Catheterized Gram Neg Bacilli Assessment and Plan Plan: Impression Present on admission abdominal pain with nausea vomiting multifactorial suspect acute pancreatitis, biliary in origin possible cholelithiasis chronic left ventral hernia without obstruction or gangrene present on admission Chronic persistent atrial fibrillation on eliquist Morbid obesity BMI 38 due to excessive calories Chronic debility limited mobility Chronic pain opiate dependency History of open cholecystectomy History of incarcerated incisional hernia secondary to multiple laparotomies for duodenal perforation from an open cholecystectomy Ultrasound of the abdomen done on July 24 show evidence of post cholecystectomy liver appears enlarged ductal dilatation likely secondary to post Present on admission hypertension urgency History of chronic constipation suspect due to opiate use Elevated AST and ALT with elevated total bilirubin history of calculus open cholecystectomy with postoperative complications including duodenal perforation presents with abdominal pain jaundice elevated liver and pancreatic enzymes consistent with acute pancreatitis suspect biliary in origin possible choledocholithiasis. Plan Pain control We'll continue to monitor surgical clinical issues as they arise No evidence of an acute surgical abdomen at this time Resume home meds as appropriate IV fluid at 100 and hour for rehydration Bowel stimulant program DVT and GI prophylaxis Resume home meds as appropriate Eliquist on hold for 48 hours per GIs recommendations possible ERCP if liver function tests do not improve Repeat labs in the morning The above impression and plan of care have been discussed and directed by signing physician. Bridget Moreland nurse practitioner acting as scribe for signing physician.
[2017-07-25] MEDS: CARBIDOPA-LEVODOPA 10-100 MG 1 EACH TAB PO SCH ×2 (16:22→21:09)
[2017-07-25 16:44] LABS: Amylase 40 U/L (30-110)
[2017-07-25 16:53] LABS: Bilirubin, Delta 1.5 mg/dL (0.0-0.2); Total Bilirubin 4.1 mg/dL (0.2-1.3)
[2017-07-25 17:43] LABS: Hepatitis C Virus IgG Ab Reactive (Negative); Hepatitis C Virus IgG Index 1.11
[2017-07-25 18:25] LABS: Hepatitis B Surface Ag Index 0.06
[2017-07-25 18:30] LABS: Hepatitis B Core IgM Index 0.08
[2017-07-25] MEDS: buPROPion 75 MG TAB PO SCH (20:43)
[2017-07-25] MEDS: DULoxetine HCL 20 MG CAPSULE.DR PO SCH (20:43)
[2017-07-25] MEDS: EZETIMIBE 10 MG TAB PO SCH (20:43)
[2017-07-25] MEDS: MELATONIN 3 MG TABLET PO SCH (20:43)
[2017-07-25] MEDS: POLYETHYLENE GLYCOL 3350 17 GM POWD.PACK PO SCH (20:43)
[2017-07-25] MEDS: clonazePAM 1 MG TAB PO PRN (21:08)
[2017-07-26] MEDS: ALBUTEROL NEBULIZED 2.5 MG/3 ML INHALATION PRN (07:29)
[2017-07-26 08:40] LABS: ALT 53 U/L (9-52); AST 87 U/L (14-36); Alkaline Phosphatase 194 U/L (38-126); Anion Gap 5 mmol/L; Blood Urea Nitrogen 16 mg/dL (7-17); Carbon Dioxide 26 mmol/L (22-30); Chloride 108 mmol/L (98-107); Glucose 79 mg/dL (74-99); Non-African American GFR(MDRD) >60 (>60 ml/min/1.73 sqM); Potassium 3.9 mmol/L (3.5-5.1); Sodium 139 mmol/L (137-145); Total Bilirubin 2.9 mg/dL (0.2-1.3); Total Protein 5.4 g/dL (6.3-8.2)
--- NOTE | 2017-07-26 09:41 | PN ---
PROGRESS NOTE Date of Service: DATE OF SERVICE: 07/25/2017 PRESENTING COMPLAINT: Abdominal pain. INTERVAL HISTORY: This is a patient with history of cholecystectomy presented with what appears to be gallstone pancreatitis. Suspect remnant stone. Abdominal pain a bit better. Seen by GI who ordered an MRCP: Lying in bed. REVIEW OF SYSTEMS: Review of systems done for constitutional, cardiovascular, GI, pulmonary; relevant findings as above. CURRENT MEDICATIONS: Current medications are reviewed. The patient is on IV ceftriaxone. PHYSICAL EXAMINATION: On examination, temperature 97, pulse 81, respirations 18, blood pressure 130/71 pulse ox 98% on 2 L. GENERAL APPEARANCE: Lying in bed, tired appearing. EYES: Pupils equal. Conjunctivae normal. NECK: JVD not raised. Mass not palpable. RESPIRATORY: Effort normal. LUNGS: Decreased breath sounds. ABDOMEN: Some right upper abdomen tenderness though decreased. No guarding or rigidity. Liver and spleen not palpable. Reducible large ventral hernia. PSYCH: AO x3. Mood and affect normal. ' NEUROLOGICAL: The patient has some resting tremor and positive glabellar tap on the forehead, minimal rigidity. INVESTIGATIONS: Potassium 4.3. AST 108, ALT 115. Lipase 472, Albumin 2.8. Abdominal ultrasound liver showed enlarged with possible intraductal dilatation. ASSESSMENT: 1. Possible acute gallstone pancreatitis, element of obstructive hepatitis with elevated alkaline phosphatase. Suspect could be a bile duct remnant stone. 2. Abdominal ventral hernia reducible large. 3. Paroxysmal atrial fibrillation, currently in sinus rhythm. 4. Chronic gastroesophageal reflux disease. 5. Essential hypertension. 6. Primary osteoarthritis multiple joints. 7. Obesity. Body mass index 38.2. 8. Chronic medical debility. 9. Depression, not otherwise specified. 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 PLAN: The patient's Eliquis remains to be on hold with possible MRCP followed by ERCP. We will also start the patient on Sinemet and see how she does. Care was discussed with Elodia from GI. Follow LFTs and lipase. MMODL / IJN: [id number] /
--- NOTE | 2017-07-26 09:57 | P.PN ---
Subjective Principal diagnosis: biliary pancreatitis 81-year-old female with a history of open cholecystectomy for gallstones admitted with abdominal pain elevated liver enzymes pancreatitis suspect choledocholithiasis. Total bilirubin improved today 2.9. Unsuccessful MRI last night secondary to body habitus. Still reports abdominal discomfort. Tolerating clear liquids. Afebrile. Antiplatelet medications on hold. Objective - Vital Signs Vital signs: Vital Signs Temp 98.4 F 07/26/17 07:00 Pulse 63 07/26/17 07:41 Resp 14 07/26/17 07:41 BP 137/57 07/26/17 07:00 Pulse Ox 96 07/26/17 07:29 Intake & Output 07/25/17 07/26/17 07/26/17 18:59 06:59 18:59 Intake Total 440 Balance 440 Intake: Oral 440 Other: Voiding Method Diaper Diaper Incontinent Incontinent # Voids 1 2 - Exam General appearance: The patient is alert, oriented, in no acute distress. HET: Head is normocephalic and atraumatic. Pupils are equal and reactive. Mild sclerae icterus. Oropharynx is clear without lesions. Neck: Supple without lymphadenopathy. Trachea midline. Heart: S1 S2. Regular rate and rhythm. Lungs: No crackles or wheezes are heard. Abdomen: Soft, tenderness to the mid epigastrium, nondistended with bowel sounds. No peritoneal signs. No palpable organomegaly or masses. Extremities: Normal skin color and turgor. No cyanosis, rash, ulceration, clubbing, or edema. Radial and pedal pulses are 2/4 bilaterally. Neurological: No focal deficits. Strength and sensation are grossly intact. - Labs CBC & Chem 7: 07/23/17 20:49 07/26/17 07:21 Labs: Abnormal Lab Results - Last 24 Hours (Table) 07/25/17 07/25/17 07/26/17 Range/Units 16:12 16:12 07:21 Chloride 108 H (98-107) mmol/L Calcium 8.0 L (8.4-10.2) mg/dL Total Bilirubin 4.1 H 2.9 H (0.2-1.3) mg/dL Conjugated Bilirubin 1.6 H (0.0-0.3) mg/dL Delta Bilirubin 1.5 H (0.0-0.2) mg/dL AST 87 H (14-36) U/L ALT 53 H (9-52) U/L Alkaline Phosphatase 194 H (38-126) U/L Total Protein 5.4 L (6.3-8.2) g/dL Albumin 2.6 L (3.5-5.0) g/dL Lipase 465 H (23-300) U/L Microbiology - Last 24 Hours (Table) 07/23/17 21:30 Urine Culture - Preliminary Urine,Catheterized Gram Neg Bacilli Assessment and Plan (1) Acute pancreatitis Narrative/Plan: 81-year-old female with a history of calculus open cholecystectomy with postoperative complications including duodenal perforation presents with abdominal pain jaundice elevated liver and pancreatic enzymes consistent with acute pancreatitis suspect biliary in origin possible choledocholithiasis. Status: Acute (2) Elevated liver enzymes Status: Acute (3) Atrial fibrillation Status: Chronic Plan: 1. ERCP tomorrow. Assessment and plan of care discussed with Dr. Hilliard
[2017-07-26] MEDS: MULTIVITAMINS, THERA 1 EACH TAB PO SCH (09:58)
[2017-07-26] MEDS: HYDROcodone/APAP 10-325MG 1 EACH TAB PO PRN ×3 (09:58→21:33)
[2017-07-26] MEDS: CARBIDOPA-LEVODOPA 10-100 MG 1 EACH TAB PO SCH ×3 (09:58→21:32)
[2017-07-26] MEDS: SOTALOL 80 MG TAB PO SCH (09:58)
[2017-07-26] MEDS: DOCUSATE 100 MG CAP PO SCH ×2 (09:59→21:33)
[2017-07-26] MEDS: LACTULOSE 20 GM/30 ML CUP PO SCH (09:59)
[2017-07-26] MEDS: FAMOTIDINE 20 MG TAB PO SCH (09:59)
[2017-07-26] MEDS: CALCIUM CARBONATE 500 MG CHEWABLE PO SCH ×3 (09:59→21:31)
[2017-07-26] MEDS: SODIUM CHLORIDE 0.9% 1,000 ML IV SCH ×2 (10:04→21:25)
[2017-07-26] MEDS: LISINOPRIL 10 MG TAB PO SCH (10:56)
--- NOTE | 2017-07-26 11:36 | P.PN ---
Subjective 81-year-old female being seen with Dr. Reyes at the bedside this morning. Patient is resting in bed does not appear in any acute distress. The MRI was not able to be completed secondary to patient's body habitus. Patient continues to report having abdominal discomfort. Patient has been seen by surgical service for a chief complaint of developing abdominal pain nausea vomiting suspect due to acute pancreatitis suspect cholelithiasis. Patient does give a history of greater than 20 years having an open cholecystectomy done for gallstones. Did note that GI service plans on doing an ERCP tomorrow. Did note that the liver enzymes are trending down. the lipase is down to 465. AST and ALT are trending down total bili is down to 2.9 Objective - Vital Signs Vital signs: Vital Signs Temp 98.4 F 07/26/17 07:00 Pulse 63 07/26/17 07:41 Resp 14 07/26/17 07:41 BP 137/57 07/26/17 07:00 Pulse Ox 96 07/26/17 07:29 Intake & Output 07/25/17 07/26/17 07/26/17 18:59 06:59 18:59 Intake Total 440 Balance 440 Intake: Oral 440 Other: Voiding Method Diaper Diaper Incontinent Incontinent # Voids 1 2 - Exam Physical exam History 81-year-old female resting in bed does not appear in acute distress awake oriented to person and place Lungs anterior diminished at the bases otherwise adequate air movement sats on room air 97% Heart S1-S2 audible regular Abdomen obese large ventral hernia noted left side nontender bowel tones present incontinent of urine no stool noted extremities no pedal edema noted - Labs CBC & Chem 7: 07/23/17 20:49 07/26/17 07:21 Labs: Abnormal Lab Results - Last 24 Hours (Table) 07/25/17 07/25/17 07/26/17 Range/Units 16:12 16:12 07:21 Chloride 108 H (98-107) mmol/L Calcium 8.0 L (8.4-10.2) mg/dL Total Bilirubin 4.1 H 2.9 H (0.2-1.3) mg/dL Conjugated Bilirubin 1.6 H (0.0-0.3) mg/dL Delta Bilirubin 1.5 H (0.0-0.2) mg/dL AST 87 H (14-36) U/L ALT 53 H (9-52) U/L Alkaline Phosphatase 194 H (38-126) U/L Total Protein 5.4 L (6.3-8.2) g/dL Albumin 2.6 L (3.5-5.0) g/dL Lipase 465 H (23-300) U/L Microbiology - Last 24 Hours (Table) 07/23/17 21:30 Urine Culture - Preliminary Urine,Catheterized Gram Neg Bacilli Assessment and Plan Plan: Impression Present on admission abdominal pain with nausea vomiting multifactorial suspect acute pancreatitis, biliary in origin possible cholelithiasis chronic left ventral hernia without obstruction or gangrene present on admission Chronic persistent atrial fibrillation on eliquist Morbid obesity BMI 38 due to excessive calories Chronic debility limited mobility Chronic pain opiate dependency History of open cholecystectomy History of incarcerated incisional hernia secondary to multiple laparotomies for duodenal perforation from an open cholecystectomy Ultrasound of the abdomen done on July 24 show evidence of post cholecystectomy liver appears enlarged ductal dilatation likely secondary to post Present on admission hypertension urgency History of chronic constipation suspect due to opiate use Elevated AST and ALT with elevated total bilirubin history of calculus open cholecystectomy with postoperative complications including duodenal perforation presents with abdominal pain elevated liver and pancreatic enzymes consistent with acute pancreatitis suspect biliary in origin possible choledocholithiasis. Plan Pain control We'll await the findings from the ERCP scheduled for tomorrow per GI No evidence of an acute surgical abdomen at this time Resume home meds as appropriate IV fluid at 100 and hour for rehydration Bowel stimulant program DVT and GI prophylaxis Resume home meds as appropriate Repeat labs in the morning [facility] is on hold The above impression and plan of care have been discussed and directed by signing physician. Bridget Moreland nurse practitioner acting as scribe for signing physician.
[2017-07-26] MEDS: HEPARIN SODIUM,PORCINE 5,000 UNIT/ML 1 ML VIAL SQ SCH ×3 (12:57→23:31)
--- NOTE | 2017-07-26 14:01 | CDI ---
In responding to this query, please exercise your independent professional judgment. The [facility] Coding Staff and Clinical Documentation Specialists appreciate your assistance in clarifying documentation, maintaining compliance with coding guidelines, accurately documenting patients condition and capturing severity of illness. The fact that a question is asked does not imply that any particular answer is desired or expected. Communication forms are a method of clarifying documentation and are not made part of the Legal Health Record. Thank you in advance for your clarification. Last Revision, January 2016 Gisselle Johnson [address] [place] [address] Documentation Clarification Form Date: 07/26/2017 1:35:00 PM From: Rhona Perdomo, JACKY, CCDS Admit Date: 07/23/2017 10:15:00 PM Patient Name: Bridget Romero Visit Number: [id number] Discharge Date: Dr. Veronica Huff: Clarification of Clinical Findings: 81 yo female, admitted with abdominal pain, nausea, loose stools & constipation. Has chronic pain with Fentanyl patch. The patient had a cholecystectomy "many years ago", possibly over 20 years. Has a large ventral hernia on the left side, chronic without obstruction or gangrene. Diagnosed with acute pancreatitis, suspect cholelithiasis. Clinical Indicators: LAB: Total Bilirubin 3.3, AST 257, ALT 152, Alkaline Phosphatase 278, Lipase 1622. RAD: KUB: Large left side abdominal wall hernia. US Abdomen: Postcholecystectomy. Liver appears enlarged & heterogeneous with possible intraductal dilation. Ductal dilation likely secondary to postcholecystectomy changes. Treatment: Aspirin, IV Apresoline, IV Ms, IV Narcan, IV Zofran, IV Rocephin, INH Neb txs, IV fluid rate 100. Consult: Surgery (possible gallstones), GI (possible gallstone pancreatitis). Please clarify the diagnosis you treating the patient for: Acute gallstone pancreatitis Acute gallstone pancreatitis with or without obstructive hepatitis Acute on chronic gallstone pancreatitis with or without obstructive hepatitis Chronic Pancreatitis Postcholecystectomy Syndrome Other Unknown or unable to determine. Please document your response in your progress notes and please note if it was present on admission. FYI: Press F11 to launch patient chart PLEASE RE-DIRECT INQUIRY TO DR. PICKETT I WAS JUST THE COVERING PHYSICIAN ZULAY
[2017-07-26] MEDS: MELATONIN 3 MG TABLET PO SCH (21:31)
[2017-07-26] MEDS: EZETIMIBE 10 MG TAB PO SCH (21:31)
[2017-07-26] MEDS: DULoxetine HCL 20 MG CAPSULE.DR PO SCH (21:32)
[2017-07-26] MEDS: clonazePAM 1 MG TAB PO PRN (21:32)
[2017-07-26] MEDS: POLYETHYLENE GLYCOL 3350 17 GM POWD.PACK PO SCH (21:34)
[2017-07-26] MEDS: buPROPion 75 MG TAB PO SCH (21:34)
[2017-07-27] MEDS: SODIUM CHLORIDE 0.9% 1,000 ML IV SCH ×2 (06:24→15:37)
[2017-07-27 08:18] LABS: ALT 45 U/L (9-52); AST 79 U/L (14-36); Alkaline Phosphatase 183 U/L (38-126); Anion Gap 5 mmol/L; Blood Urea Nitrogen 11 mg/dL (7-17); Calcium 8.5 mg/dL (8.4-10.2); Carbon Dioxide 25 mmol/L (22-30); Chloride 111 mmol/L (98-107); Glucose 84 mg/dL (74-99); Non-African American GFR(MDRD) >60 (>60 ml/min/1.73 sqM); Potassium 3.9 mmol/L (3.5-5.1); Sodium 141 mmol/L (137-145); Total Bilirubin 2.4 mg/dL (0.2-1.3); Total Protein 5.7 g/dL (6.3-8.2)
--- NOTE | 2017-07-27 10:27 | PN ---
PROGRESS NOTE Date of Service: DATE OF SERVICE: July 26, 2017 INTERVAL HISTORY: This is a patient with history of cholecystectomy presented with what appears to be gallstone pancreatitis. Pending ERCP. The patient also diagnosed with Parkinson disease. Was put on Sinemet by me yesterday. The patient's tremors are better. She feels better, about the same. REVIEW OF SYSTEMS: Done for constitutional cardiovascular, GI, pulmonary, neurological, relevant findings as above. CURRENT MEDICATIONS: Reviewed that include IV ceftriaxone and Sinemet. EXAMINATION: On examination temperature 98.4, pulse 55, respiratory rate 16, blood pressure 137/50, pulse 57, pulse ox 97% on room air. GENERAL APPEARANCE: Lying in bed, awake. EYES: Pupils equal, conjunctivae normal. Neck JVD not raised. Mass not palpable. Respiratory effort normal. LUNGS: Decreased breath sounds. Cardiovascular 1st and 2nd sounds normal. No edema. Abdomen decreased tenderness. Liver and spleen not palpable. Psychiatry: Alert and oriented times three. Mood and affect normal. Neurological: Resting tremor better and the patient has finger count exactly has improved. INVESTIGATIONS: Potassium 3.9. AST 87, ALT 53, albumin 2.6. Urine culture positive for E coli. ASSESSMENT: 1. Possible acute gallstone pancreatitis. Element of obstructive hepatitis with elevated alkaline phosphatase with biochemical improvement. Suspect a bile duct remnant stone, pending ERCP. 2. Abdominal ventral hernia reducible . 3. Paroxysmal atrial fibrillation, in sinus rhythm. 4. Chronic gastroesophageal reflux disease. 5. Essential hypertension. 6. Primary osteoarthritis multiple joints. 7. Obesity BMI 38.2. 8. Chronic medical debility. 9. Depression not otherwise specified. 10.Idiopathic Parkinson disease. Doing better with Sinemet. 11.Acute urinary tract infection with E coli. 12.Chronic anticoagulation with Eliquis which has been held. Await ERCP. MMODL / IJN: [id number] /
--- NOTE | 2017-07-27 10:32 | P.PN ---
Subjective Principal diagnosis: biliary pancreatitis 81-year-old female with a history of open cholecystectomy for gallstones admitted with abdominal pain elevated liver enzymes pancreatitis suspect choledocholithiasis admitted with suspected biliary pancreatitis. Total bilirubin improved today 2.4. Unsuccessful MRI 2 nights ago secondary to body habitus. Still reports abdominal discomfort but improved. Hepatitis screen positive for hepatitis C antibody reactive. No history of known hepatitis or IVDA abuse. She received blood transfusions more than 50 years ago during childbirth. Nothing by mouth today for anticipated ERCP however total bilirubin slightly improved to 2.4. Afebrile. Antiplatelet medications on hold. Objective - Vital Signs Vital signs: Vital Signs Temp 96.4 F L 07/27/17 07:00 Pulse 52 L 07/27/17 07:00 Resp 16 07/27/17 07:00 BP 142/62 07/27/17 07:00 Pulse Ox 97 07/27/17 07:00 Intake & Output 07/26/17 07/27/17 07/27/17 18:59 06:59 18:59 Intake Total 640 Balance 640 Weight 110.677 kg Intake: Oral 640 Other: Voiding Method Diaper Incontinent Incontinent # Voids 4 2 1 # Bowel Movements 0 0 - Exam General appearance: The patient is alert, oriented, in no acute distress. HET: Head is normocephalic and atraumatic. Pupils are equal and reactive. Mild sclerae icterus. Oropharynx is clear without lesions. Neck: Supple without lymphadenopathy. Trachea midline. Heart: S1 S2. Regular rate and rhythm. Lungs: No crackles or wheezes are heard. Abdomen: Soft, tenderness to the mid epigastrium, nondistended with bowel sounds. No peritoneal signs. No palpable organomegaly or masses. Extremities: Normal skin color and turgor. No cyanosis, rash, ulceration, clubbing, or edema. Radial and pedal pulses are 2/4 bilaterally. Neurological: No focal deficits. Strength and sensation are grossly intact. - Labs CBC & Chem 7: 07/23/17 20:49 07/27/17 07:31 Labs: Abnormal Lab Results - Last 24 Hours (Table) 07/27/17 Range/Units 07:31 Chloride 111 H (98-107) mmol/L Total Bilirubin 2.4 H (0.2-1.3) mg/dL AST 79 H (14-36) U/L Alkaline Phosphatase 183 H (38-126) U/L Total Protein 5.7 L (6.3-8.2) g/dL Albumin 2.6 L (3.5-5.0) g/dL Microbiology - Last 24 Hours (Table) 07/23/17 21:30 Urine Culture - Final Urine,Catheterized Escherichia coli Assessment and Plan (1) Acute pancreatitis Narrative/Plan: 81-year-old female with a history of calculus open cholecystectomy with postoperative complications including duodenal perforation presents with abdominal pain jaundice elevated liver and pancreatic enzymes consistent with acute pancreatitis suspect biliary in origin possible choledocholithiasis. Status: Acute (2) Elevated liver enzymes Status: Acute (3) Atrial fibrillation Status: Chronic (4) Hepatitis C antibody positive in blood Status: Acute Plan: 1. Hepatitis C reactive antibody felt to be unrelated to her presentation. This could be an incidental finding. We'll proceed with quantitative measurement and genotype. 2. Abdominal pain is improving total bilirubin LFTs slowly improving as well. Will cancel ERCP evaluation today. Diet as tolerated. Restart antiplatelet medications. We'll follow with you. Assessment and plan a care discussed with Dr. Howell.
[2017-07-27] MEDS: DOCUSATE 100 MG CAP PO SCH ×2 (10:38→21:10)
[2017-07-27] MEDS: HEPARIN SODIUM,PORCINE 5,000 UNIT/ML 1 ML VIAL SQ SCH ×3 (10:38→23:10)
[2017-07-27] MEDS: LACTULOSE 20 GM/30 ML CUP PO SCH (10:38)
[2017-07-27] MEDS: SOTALOL 80 MG TAB PO SCH (10:39)
[2017-07-27] MEDS: CARBIDOPA-LEVODOPA 10-100 MG 1 EACH TAB PO SCH ×3 (10:39→21:09)
[2017-07-27] MEDS: CALCIUM CARBONATE 500 MG CHEWABLE PO SCH ×3 (10:39→21:09)
[2017-07-27] MEDS: LISINOPRIL 10 MG TAB PO SCH (10:39)
[2017-07-27] MEDS: MULTIVITAMINS, THERA 1 EACH TAB PO SCH (10:39)
[2017-07-27] MEDS: FAMOTIDINE 20 MG TAB PO SCH (10:39)
[2017-07-27] MEDS: HYDROcodone/APAP 10-325MG 1 EACH TAB PO PRN ×2 (10:59→20:34)
--- NOTE | 2017-07-27 12:59 | P.PN ---
<Bridget Moreland - Last Filed: 07/27/17 12:46> Subjective 81-year-old female being seen on rounds this morning is currently resting in bed does not appear in any acute distress. Did note GI workup. Labs reviewed hepatitis C reactive antibiotic noted felt to be unrelated to clinical presentation likely incidental finding. The ERCP that was scheduled today by GI service has been counseled diet will be reinitiated and GI indicate medicine can restart antiplatelet medication. Patient was being seen by surgical service for abdominal pain. MRI was scheduled was not able to be completed secondary to patient's body habitus. Patient initially presented with a chief complaint of abdominal pain nausea vomiting suspect due to acute pancreatitis suspect cholelithiasis. The initial lipase was elevated to 7/34 down 465. Liver enzymes are trending down. Objective - Vital Signs Vital signs: Vital Signs Temp 96.4 F L 07/27/17 07:00 Pulse 52 L 07/27/17 07:00 Resp 16 07/27/17 07:00 BP 142/62 07/27/17 07:00 Pulse Ox 97 07/27/17 07:00 Intake & Output 07/26/17 07/27/17 07/27/17 18:59 06:59 18:59 Intake Total 640 Balance 640 Weight 110.677 kg Intake: Oral 640 Other: Voiding Method Diaper Incontinent Incontinent Incontinent # Voids 4 2 1 # Bowel Movements 0 0 - Exam Physical exam 81-year-old female resting comfortably in bed arousable to verbal stimuli aware of the plan of care Lungs essentially clear with adequate air movement on room air Heart S1-S2 audible regular Abdomen obese soft nondistended large ventral hernia unchanged from admission incontinent of urine no stool bowel tones present Extremities no edema lower extremities - Labs CBC & Chem 7: 07/23/17 20:49 07/27/17 07:31 Labs: Abnormal Lab Results - Last 24 Hours (Table) 07/27/17 Range/Units 07:31 Chloride 111 H (98-107) mmol/L Total Bilirubin 2.4 H (0.2-1.3) mg/dL AST 79 H (14-36) U/L Alkaline Phosphatase 183 H (38-126) U/L Total Protein 5.7 L (6.3-8.2) g/dL Albumin 2.6 L (3.5-5.0) g/dL Microbiology - Last 24 Hours (Table) 07/23/17 21:30 Urine Culture - Final Urine,Catheterized Escherichia coli Assessment and Plan Plan: Impression Present on admission abdominal pain with nausea vomiting multifactorial suspect acute pancreatitis, biliary in origin possible cholelithiasis chronic left ventral hernia without obstruction or gangrene present on admission Chronic persistent atrial fibrillation on eliquist Morbid obesity BMI 38 due to excessive calories Chronic debility limited mobility Chronic pain opiate dependency History of open cholecystectomy History of incarcerated incisional hernia secondary to multiple laparotomies for duodenal perforation from an open cholecystectomy Ultrasound of the abdomen done on July 24 show evidence of post cholecystectomy liver appears enlarged ductal dilatation likely secondary to post Present on admission hypertension urgency History of chronic constipation suspect due to opiate use Elevated AST and ALT with elevated total bilirubin history of calculus open cholecystectomy with postoperative complications including duodenal perforation presents with abdominal pain elevated liver and pancreatic enzymes consistent with acute pancreatitis suspect biliary in origin possible choledocholithiasis. present on admission nausea vomiting abdominal pain acute on chronic gallstone pancreatitis without obstructive hepatitis Plan Pain control the surgical perspective patient is stable to be transferred back to the F facility defer to medicine to the timing of a transfer No evidence of an acute surgical abdomen at this time Resume home meds as appropriate IV fluid at 100 and hour for rehydration Bowel stimulant program DVT and GI prophylaxis Resume home meds as appropriate Repeat labs in the morning [facility] per GI services can be restarted defer to medicine to address The above impression and plan of care have been discussed and directed by signing physician. Bridget Moreland nurse practitioner acting as scribe for signing physician. <Veronica Huff - Last Filed: 08/02/17 16:47> Objective - Vital Signs Vital signs: Vital Signs Temp 96.9 F L 07/28/17 07:00 Pulse 51 L 07/28/17 07:00 Resp 18 07/28/17 15:58 BP 129/60 07/28/17 07:00 Pulse Ox 98 07/28/17 07:00 - Labs CBC & Chem 7: 07/23/17 20:49 07/28/17 10:04
[2017-07-27] MEDS: PIPERACILLIN-TAZOBACTAM 3.375 GM in DEXTROSE/WATER 1 50ML.BAG IVPB SCH ×2 (15:37→21:59)
--- NOTE | 2017-07-27 20:14 | P.PN ---
<Fior Booth - Last Filed: 07/27/17 19:47> Progress Note - Text DATE OF SERVICE: 07/27/2017 PRESENTING COMPLAINT: Abdominal pain HISTORY OF PRESENT ILLNESS: 81-year-old patient who presents with 1 day of increasing upper abdominal pain and nausea no fever. Abdominal ultrasound reveals enlarged liver with post intraductal dilatation. GI and general surgery consulted. INTERVAL HISTORY: 07/27/2017: Patient lying in bed appears comfortable, patient was originally scheduled for an ERCP today with GI hepatitis C reactive antibody positive in the blood likely an incidental finding, and patient's abdominal pain is improving liver function tests and total bilirubin are slowly improving and ERCP was canceled. Surgery ordered an MRI and it was unable to be completed due to patient's body habitus, patient does not have an acute surgical abdomen. Started the patient on low fiber diet she is tolerating this, last bowel movement prior to admission. REVIEW OF SYSTEMS: Done for constitutional ,cardiovascular, GI, pulmonary with relevant findings as above. CURRENT MEDICATIONS [place] 10, Wellbutrin, Sinemet, Klonopin, Cymbalta, Alka, Apresoline, Zestril, melatonin, Zosyn, MiraLAX. Betapace PHYSICAL EXAM VITAL SIGNS: Temperature 96.4, pulse 52, heart rate 16, blood pressure 142/62, oxygen saturation 97% on 2 L GENERAL APPEARANCE: Lying in bed, not in distress. EYES: Pupils equal. Conjunctiva normal. NECK: JVD not raised. Mass not palpable. RESPIRATORY: Respiratory effort normal. Lungs clear to auscultation. CARDIOVASCULAR: First and second sounds normal. No edema. ABDOMEN: Soft. Liver and spleen not palpable. No tenderness. No mass palpable. PSYCHIATRY: Alert and oriented x3. Mood and affect normal. NEUROLOGICAL: Cranial nerves grossly intact. No facial asymmetry. Power and sensation grossly intact INVESTIGATIONS: Sodium 141 potassium 3.9 calcium 8.5 total bilirubin 2.4, AST 79, ALTs 45, alk phos 183, total protein 5.7, albumin 2.6. ASSESSMENT: -Possible acute gallstone pancreatitis and element of obstructive hepatitis with elevated alk phos, improving -Abdominal ventral hernia, reducible -Paroxysmal atrial fibrillation currently in sinus rhythm -Chronic GERD -Essential hypertension uncontrolled -Primary osteoarthritis multiple joints -Obesity BMI 38.2 -Chronic medical debility -Depression not otherwise specified -Hepatitis C reactive antibody in blood PLAN: Abdominal pain and total bilirubin and LFTs are slowly improving ERCP was canceled for today. Antiplatelet medication restarted diet reinitiated. Patient does not have an acute surgical abdomen and Gen. surgery is signed off. Discharge planning for patient to return to [facility]. Plan of care discussed with the patient the bedside she is in agreement. We will follow closely. TUCK POINTER statement: Patient was seen and examined by nurse practitioner Fior Booth and all elements of the case discussed with attending Dr. Bellamy <Gaetano Bellamy - Last Filed: 07/27/17 22:19> Progress Note - Text Attending note. Date of service-July 27, 2017 This patient was seen and examined by me . Discussed the patient with my nurse practitioner Ms. Booth. Abdominal pain better. That was advanced per GI. He is to be canceled. On examination: Abdomen soft nontender, neuro-resting tremors are better Investigations: LFTs have come down Assessment and plan: Will follow another 24 hours. If remained stable then discharged back to the [facility]
[2017-07-27] MEDS ORDERED: APIXABAN 5 MG TAB PO SCH (21:00)
[2017-07-27] MEDS: EZETIMIBE 10 MG TAB PO SCH (21:09)
[2017-07-27] MEDS: DULoxetine HCL 20 MG CAPSULE.DR PO SCH (21:09)
[2017-07-27] MEDS: buPROPion 75 MG TAB PO SCH (21:09)
[2017-07-27] MEDS: clonazePAM 1 MG TAB PO PRN (21:09)
[2017-07-27] MEDS: MELATONIN 3 MG TABLET PO SCH (21:09)
[2017-07-27] MEDS: POLYETHYLENE GLYCOL 3350 17 GM POWD.PACK PO SCH (21:10)
[2017-07-27] MEDS: APIXABAN 5 MG TAB PO SCH (21:10)
[2017-07-28] MEDS: SODIUM CHLORIDE 0.9% 1,000 ML IV SCH ×2 (03:43→13:19)
[2017-07-28] MEDS: PIPERACILLIN-TAZOBACTAM 3.375 GM in DEXTROSE/WATER 1 50ML.BAG IVPB SCH ×2 (07:02→13:19)
[2017-07-28] MEDS: FAMOTIDINE 20 MG TAB PO SCH (08:11)
[2017-07-28] MEDS: APIXABAN 5 MG TAB PO SCH (08:11)
[2017-07-28] MEDS: CALCIUM CARBONATE 500 MG CHEWABLE PO SCH ×2 (08:11→15:56)
[2017-07-28] MEDS: MULTIVITAMINS, THERA 1 EACH TAB PO SCH (08:11)
[2017-07-28] MEDS: HEPARIN SODIUM,PORCINE 5,000 UNIT/ML 1 ML VIAL SQ SCH ×2 (08:11→15:54)
[2017-07-28] MEDS: CARBIDOPA-LEVODOPA 10-100 MG 1 EACH TAB PO SCH ×2 (08:11→15:56)
[2017-07-28] MEDS: DOCUSATE 100 MG CAP PO SCH (08:11)
[2017-07-28] MEDS: LACTULOSE 20 GM/30 ML CUP PO SCH (08:11)
[2017-07-28] MEDS: LISINOPRIL 10 MG TAB PO SCH (08:12)
[2017-07-28] MEDS: SOTALOL 80 MG TAB PO SCH (08:12)
[2017-07-28] MEDS: HYDROcodone/APAP 10-325MG 1 EACH TAB PO PRN (08:17)
[2017-07-28 08:37] VITALS: BP 129/60; PULSE 51; TEMP 96.9
[2017-07-28 10:51] LABS: ALT 43 U/L (9-52); AST 63 U/L (14-36); Alkaline Phosphatase 187 U/L (38-126); Anion Gap 5 mmol/L; Blood Urea Nitrogen 9 mg/dL (7-17); Calcium 8.6 mg/dL (8.4-10.2); Carbon Dioxide 27 mmol/L (22-30); Chloride 110 mmol/L (98-107); Glucose 122 mg/dL (74-99); Non-African American GFR(MDRD) >60 (>60 ml/min/1.73 sqM); Potassium 3.9 mmol/L (3.5-5.1); Sodium 142 mmol/L (137-145); Total Bilirubin 1.9 mg/dL (0.2-1.3); Total Protein 5.8 g/dL (6.3-8.2)
--- NOTE | 2017-07-28 13:46 | P.DS ---
<Fior Booth - Last Filed: 07/28/17 13:29> Providers Date of admission: 07/23/17 22:15 Expected date of discharge: 07/28/17 Attending physician: Gaetano Bellamy Consults: 07/24/17 11:20 Consult Physician Routine Consulting Provider: Valarie Sanchez Consult Reason/Comments: poss gallstones Do you want consulting provider notified?: Yes Consult Physician Routine Consulting Provider: Steven Hilliard Consult Reason/Comments: poss gallstone pancretitis Do you want consulting provider notified?: Yes Primary care physician: [facility] Course: FINAL DIAGNOSES: -Possible acute gallstone pancreatitis and element of obstructive hepatitis with elevated alk phos, -Abdominal ventral hernia, reducible -Paroxysmal atrial fibrillation currently in sinus rhythm -Chronic GERD -Essential hypertension uncontrolled -Primary osteoarthritis multiple joints -Obesity BMI 38.2 -Chronic medical debility -Depression not otherwise specified -Hepatitis C reactive antibody in blood HOSPTIAL COURSE: 81-year-old female who presented from [facility] with acute abdominal pain. Labs were drawn patient had elevated liver enzymes, elevated total bilirubin and She was admitted, Gen. surgery and GI consulted. Surgical perspective was no evidence of acute surgical abdomen. LFTs continued to be elevated and GI had planned an ERCP and sent additional labs including hepatitis screen, if no improvement or if MRI warranted further investigation. Unable to complete MRI due to body habitus. LFTs trended down and ERCP canceled however hepatitis C antibody positive in blood work. Quantitative measurement and genotype in process however GI feels this is unrelated to her presentation and an incidental finding. Liver function tests improved, abdominal pain decreased. Tolerating her diet, moving her bowels, overall condition stabilized. Patient is stable for discharge back to the nursing care facility in which she lives. PHYSICAL EXAM: CARDIOVASCULAR: First and second sounds noted generalized edema to lower extremities. RESPIRATORY: Effort normal, lung sounds diminished bilaterally GI: Abdomen soft nontender liver and spleen not palpable Patient was seen and examined by nurse practitioner Fior Booth in all elements of the case discussed with attending Dr. Bellamy DISPOSITION: Discharge to [facility] Patient Condition at Discharge: Fair Plan - Discharge Summary New Discharge Prescriptions: New Carbidopa-Levodopa 10-100 mg [Sinemet 10-100 mg] 1 each PO TID tab Polyethylene Glycol 3350 [Miralax] 17 gm PO HS pack Continue Lactulose 10 gm PO DAILY PRN PRN Reason: Constipation buPROPion [Wellbutrin] 75 mg PO HS Sotalol [Betapace] 80 mg PO DAILY Ranitidine HCl 150 mg PO DAILY Multivitamins, Thera [Multivitamin (formulary)] 1 tab PO DAILY Ezetimibe [Zetia] 10 mg PO HS Apixaban [Eliquis] 5 mg PO BID Calcium Carbonate [Tums] 500 mg PO TID Lisinopril [Zestril] 10 mg PO DAILY DULoxetine HCL [Cymbalta] 20 mg PO HS Laona-3 Fatty Acids/Fish Oil [Fish Oil 1,000 mg Softgel] 1,000 mg PO DAILY Albuterol Nebulized [Ventolin Nebulized] 2.5 mg INHALATION RT-Q6H PRN PRN Reason: Shortness Of Breath Magnesium Hydroxide [Milk of Magnesia] 1,600 mg PO DAILY PRN PRN Reason: Constipation Melatonin 3 mg PO HS Ondansetron HCl [Zofran] 4 mg PO Q8H PRN PRN Reason: Nausea clonazePAM [KlonoPIN] 1 mg PO HS PRN #10 tab PRN Reason: leg cramps fentaNYL 100MCG/HR PATCH [Duragesic 100MCG/HR] 1 patch TRANSDERM Q72H #3 patch HYDROcodone/APAP 10-325MG [[place] 10-325] 1 tab PO Q4HR PRN #20 tab PRN Reason: Pain Discontinued Acetaminophen [Tylenol] 650 mg PO Q4H PRN PRN Reason: Pain guaiFENesin [guaiFENesin Oral Solution] 200 mg PO Q4H PRN PRN Reason: Cough Discharge Medication List Apixaban [Eliquis] 5 mg PO BID 03/24/16 [History] Calcium Carbonate [Tums] 500 mg PO TID 03/24/16 [History] DULoxetine HCL [Cymbalta] 20 mg PO HS 03/24/16 [History] Ezetimibe [Zetia] 10 mg PO HS 03/24/16 [History] Lactulose 10 gm PO DAILY PRN 03/24/16 [History] Lisinopril [Zestril] 10 mg PO DAILY 03/24/16 [History] Multivitamins, Thera [Multivitamin (formulary)] 1 tab PO DAILY 03/24/16 [History ] Laona-3 Fatty Acids/Fish Oil [Fish Oil 1,000 mg Softgel] 1,000 mg PO DAILY 03/24 [History] Ranitidine HCl 150 mg PO DAILY 03/24/16 [History] Sotalol [Betapace] 80 mg PO DAILY 03/24/16 [History] buPROPion [Wellbutrin] 75 mg PO HS 03/24/16 [History] Albuterol Nebulized [Ventolin Nebulized] 2.5 mg INHALATION RT-Q6H PRN 06/15/16 [ History] Magnesium Hydroxide [Milk of Magnesia] 1,600 mg PO DAILY PRN 07/23/17 [History] Melatonin 3 mg PO HS 07/23/17 [History] Ondansetron HCl [Zofran] 4 mg PO Q8H PRN 07/23/17 [History] Carbidopa-Levodopa 10-100 mg [Sinemet 10-100 mg] 1 each PO TID tab 07/28/17 [Rx ] HYDROcodone/APAP 10-325MG [[place] 10-325] 1 tab PO Q4HR PRN #20 tab 07/28/17 [Rx] Polyethylene Glycol 3350 [Miralax] 17 gm PO HS pack 07/28/17 [Rx] clonazePAM [KlonoPIN] 1 mg PO HS PRN #10 tab 07/28/17 [Rx] fentaNYL 100MCG/HR PATCH [Duragesic 100MCG/HR] 1 patch TRANSDERM Q72H #3 patch 07/28/17 [Rx] Follow up Appointment(s)/Referral(s): Alirio Ellington MD [Primary Care Provider] - 07/29/17 Laurita Howell MD [STAFF PHYSICIAN] - 1 Week Ambulatory/Diagnostic Orders: Complete Blood Count w/diff [LAB.AMB] Time Frame: 3 Days, Location: Determined By Patient Comprehensive Metabolic Panel [LAB.AMB] Time Frame: 3 Days, Location: Determined By Patient Discharge Disposition: TRANSFER TO SNF/ECF <JosesitoGaetano - Last Filed: 07/28/17 22:16> Hospital Course: Attending note. Date of service-07/28/2017 This patient was seen and examined by me . Discussed the patient with my nurse practitioner Ms. Gressle. Doing well. Tolerating diet. No abdominal pain. On examination: Abdomen soft nontender. Resting tremor much improved. Investigations: LFTs improved Assessment and plan: Gallstone pancreatitis. LFTs greatly improved. No further intervention per surgery or for GI patient to be discharged back to [facility]
--- NOTE | 2017-07-28 13:50 | PN ---
PROGRESS NOTE DATE OF DICTATION: 07/28/17. REQUESTING PHYSICIAN: Dr. Ellington. The patient is an 81-year-old pleasant white female, admitted to the hospital with acute biliary pancreatitis. She is status post gallbladder surgery many years ago. She is feeling better this morning. Abdominal pain has resolved. No further episodes of nausea or vomiting on a low-fiber diet, tolerating well. PHYSICAL EXAMINATION: She appears comfortable. No apparent distress. Vitals is stable. Blood pressure is 129/60, pulse rate 51, temperature 97.8. HEENT examination unremarkable. Conjunctivae pink and sclerae anicteric. Oral cavit no lesions. NECK: No jugular venous distention or lymph node enlargement. Chest was clear to auscultation. HEART: Regular rate and rhythm. ABDOMEN: Soft. Bowel sounds are positive. Mild tenderness in the epigastric area. EXTREMITIES: No pedal edema. SKIN: No rashes. Neuro: Alert and oriented times three. No focal deficits. LABS: Labs from yesterday AST is down to 79, ALT 45, T-bilirubin is 2.4. Albumin 2.6, alkaline phosphatase 183. Hepatitis serologies showed hepatitis C antibody that was positive. Labs from today are still pending. IMPRESSION: Acute biliary pancreatitis with significantly improving serum transaminases most likely indicated that she has already passed the CBD stone spontaneously. Clinically pancreatitis has completely resolved. RECOMMENDATIONS: 1. Await labs from today. 2. Advance diet as tolerated. 3. If labs are close to normal, she can be discharged from today with outpatient follow up in 2 weeks. Thank you for this consultation. MMODL / IJN: [id number] /
[2017-07-28 15:59] VITALS: RESP 18
[2017-07-28 16:58] LABS: Glucose,Whole Blood 95 mg/dL (75-99)
--- NOTE | 2017-07-28 21:55 | P.PN ---
Subjective Principal diagnosis: History of elevated liver enzymes The patient is an 81-year-old female who was admitted with elevated liver enzymes. She denies any active abdominal pain. Abdominal pain is resolved. Objective - Vital Signs Vital signs: Vital Signs Temp 96.9 F L 07/28/17 07:00 Pulse 51 L 07/28/17 07:00 Resp 18 07/28/17 15:58 BP 129/60 07/28/17 07:00 Pulse Ox 98 07/28/17 07:00 Intake & Output 07/27/17 07/28/17 07/28/17 18:59 06:59 18:59 Other: Voiding Method Incontinent Incontinent # Voids 2 3 2 - Exam GENERAL: Well developed and in no acute distress. Pleasant. HEENT: No sclera icterus. Extraocular movements grossly intact. Moist buccal mucosa. Head is atraumatic, normocephalic. Hears conversational speech. No nasal drainage. NECK: Supple without lymphadenopathy. No JV distention. CHEST: Non-labored respirations and equal bilateral excursions. CARDIOVASCULAR: Irregular rate and rhythm. Palpable 2+ radial pulses. ABDOMEN: Soft, nontender. Nondistended. MUSCULOSKELETAL: No clubbing, cyanosis or edema. NEUROLOGIC: No focal or lateralizing signs. PSYCH: Appropriate affect. Alert and oriented to person, place and time. SKIN: Good skin turgor. Will perfused. - Labs CBC & Chem 7: 07/23/17 20:49 07/28/17 10:04 Labs: Abnormal Lab Results - Last 24 Hours (Table) 07/28/17 Range/Units 10:04 Chloride 110 H (98-107) mmol/L Glucose 122 H (74-99) mg/dL Total Bilirubin 1.9 H (0.2-1.3) mg/dL AST 63 H (14-36) U/L Alkaline Phosphatase 187 H (38-126) U/L Total Protein 5.8 L (6.3-8.2) g/dL Albumin 2.8 L (3.5-5.0) g/dL Lipase 22 L (23-300) U/L Assessment and Plan Plan: 1. Abdominal pain is resolved. 2. Patient is clinically stable for discharge.
--- NOTE | 2017-08-09 10:31 | CDI ---
In responding to this query, please exercise your independent professional judgment. The [facility] Coding Staff and Clinical Documentation Specialists appreciate your assistance in clarifying documentation, maintaining compliance with coding guidelines, accurately documenting patients condition and capturing severity of illness. The fact that a question is asked does not imply that any particular answer is desired or expected. Communication forms are a method of clarifying documentation and are not made part of the Legal Health Record. Thank you in advance for your clarification. Last Revision, January 2016 Gisselle Johnson [address] [facility] [place] [address] Documentation Clarification Form Date: 07/26/2017 1:35:00 PM From: Rhona Perdomo, JACKY, CCDS Admit Date: 07/23/2017 10:15:00 PM Patient Name: Bridget Romero Visit Number: [id number] Discharge Date: 07/28/2017 Dr. Valarie Sanchez: Clarification of Clinical Findings: 81 yo female, admitted with abdominal pain, nausea, loose stools & constipation. Has chronic pain with Fentanyl patch. The patient had a cholecystectomy "many years ago", possibly over 20 years. Has a large ventral hernia on the left side, chronic without obstruction or gangrene. Diagnosed with acute pancreatitis, suspect cholelithiasis. Clinical Indicators: LAB: Total Bilirubin 3.3, AST 257, ALT 152, Alkaline Phosphatase 278, Lipase 1622. RAD: KUB: Large left side abdominal wall hernia. US Abdomen: Postcholecystectomy. Liver appears enlarged & heterogeneous with possible intraductal dilation. Ductal dilation likely secondary to postcholecystectomy changes. Treatment: Aspirin, IV Apresoline, IV Ms, IV Narcan, IV Zofran, IV Rocephin, INH Neb txs, IV fluid rate 100. Consult: Surgery (possible gallstones), GI ( possible gallstone pancreatitis). Please clarify the diagnosis you treating the patient for: Acute gallstone pancreatitis Acute gallstone pancreatitis with or without obstructive hepatitis Acute on chronic gallstone pancreatitis with or without obstructive hepatitis Chronic Pancreatitis Postcholecystectomy Syndrome Other Unknown or unable to determine. Please document your response in your progress notes and please note if it was present on admission. FYI: Press F11 to launch patient chart MTDD
== END 2017-07-28 17:29 | DRG 439 ==
LOC: EC 20:14 → 4MS4W 22:15
PROVIDERS: ADMIT Hospitalist; ATTEND Hospitalist
DX: K85.10 Biliary acute pancreatitis without necrosis or infection (principal); F11.20 Opioid dependence, uncomplicated; G20 Parkinson's disease; I48.1 Persistent atrial fibrillation; E66.01 Morbid (severe) obesity due to excess calories; N39.0 Urinary tract infection, site not specified; I48.0 Paroxysmal atrial fibrillation; B96.20 Unspecified Escherichia coli [E. coli] as the cause of diseases classified elsewhere; B19.20 Unspecified viral hepatitis C without hepatic coma; E78.5 Hyperlipidemia, unspecified; F32.9 Major depressive disorder, single episode, unspecified; G89.29 Other chronic pain; I10 Essential (primary) hypertension; I48.2 Chronic atrial fibrillation; K21.9 Gastro-esophageal reflux disease without esophagitis; K43.9 Ventral hernia without obstruction or gangrene; K80.70 Calculus of gallbladder and bile duct without cholecystitis without obstruction; K75.89 Other specified inflammatory liver diseases; M19.91 Primary osteoarthritis, unspecified site; Z96.653 Presence of artificial knee joint, bilateral; M81.0 Age-related osteoporosis without current pathological fracture; Z96.642 Presence of left artificial hip joint; Z79.01 Long term (current) use of anticoagulants; Z79.899 Other long term (current) drug therapy; Z82.5 Family history of asthma and other chronic lower respiratory diseases; Z87.11 Personal history of peptic ulcer disease; Z87.442 Personal history of urinary calculi; Z87.891 Personal history of nicotine dependence; Z90.49 Acquired absence of other specified parts of digestive tract
CPT/HCPCS: 36415; 71020; 74000; 76705; 80053; 80074; 81001; 82150; 82248; 82550; 82553; 83690; 83735; 83880; 84484; 85025; 85610; 85730; 87077; 87086; 87186; 93005; 94640; 94760; 96365; 96375; 96376; 99285